=== PATIENT | female | born 1965 | race Caucasian/White ===

== ENCOUNTER → 2017-11-24 | Outpatient (CLI) | payer BC ==
[~2017-11-24] MED LIST: CALCIUM 600 +1 EAC9 PO; CHROMIUM PICO200 MC1 PO; EFFEXOR XR150 MG PO; FLONASE16 G1 BOTH NARES; HAIR, SKIN & N1 EAC1 PO; HYDROCHLOROTH12.5 M3 PO; MAG-OXIDE400 MG PO; MULTI VITAMIN1 EACH PO; OMEGA-31000 M1 PO; OTEZLA30 MG PO; TART CHERRY CA1 EACH PO; TURMERIC500 M2 PO; VITAMIN B122500 MCG PO
== END | disposition home or self-care (01) ==
LOC: OPR 07:42 → EDSTATUS 08:00 → OPR 08:00
PROC: 0DBV3ZX Excision of Mesentery, Percutaneous Approach, Diagnostic (ICD-10-PCS; principal; 2017-11-24)
DX: R59.1 Generalized enlarged lymph nodes (principal); K91.62 Intraoperative hemorrhage and hematoma of a digestive system organ or structure complicating other procedure; Z53.09 Procedure and treatment not carried out because of other contraindication
CPT/HCPCS: 77012; J2405; J3010

== ENCOUNTER → 2017-12-05 | Outpatient (CLI) | payer BC | END | disposition home or self-care (01) | LOC: OPR 08:49 → EDSTATUS 09:00 → RAD 09:00 | PROC: 07JNXZZ Inspection of Lymphatic, External Approach (ICD-10-PCS; principal; 2017-12-05) | DX: R59.0 Localized enlarged lymph nodes (principal); Z53.09 Procedure and treatment not carried out because of other contraindication | CPT/HCPCS: 76705; J3010 ==